=== PATIENT | male | born 1945 | race Caucasian/White ===

== ENCOUNTER → 2021-03-14 08:32 | Outpatient (CLI) | payer OTHER ==
[2020-10-24 11:01] VITALS: BMI 23.1
[~2021-03-14 08:32] MED LIST: AMIODARONE HCL200 MG PO; BAYER ASPIRIN325 MG PO; BAYER CHEWABLE81 MG PO; BUPROPION XL150 MG PO; COZAAR50 MG PO; IBUPROFEN800 MG PO; LIPITOR20 MG PO; LOPRESSOR25 MG PO; LOW DOSE ASPIRI81 M1 PO; NORVASC10 MG PO; OMEPRAZOLE40 MG PO; PERCOCET 5-3251 TAB PO; PLAVIX75 MG PO; TRIAMTERENE-HC1 EAC3 PO
== END | disposition home or self-care (01) ==
LOC: D.US 08:32
PROVIDERS: ATTEND Thoracic Surgery (Cardiothoracic Vascular Surgery)
DX: I65.23 Occlusion and stenosis of bilateral carotid arteries (principal)